=== PATIENT | male | born 1935 | race Caucasian/White ===

== ENCOUNTER → 2017-05-01 | Outpatient (CLI) | payer MEDICARE, OTHER ==
[~2017-05-01] MED LIST: ALLO300 PO; ASPI81CH; CYCL10 PO; Flonase 0.05% N16 GM; HYDACE10B PO; LISHYD2025 PO; Pataday2.5 ML; TAMS.4ER PO; UNK BP MED
== END | disposition home or self-care (01) ==
LOC: LAB SHORT 13:28 → PLD 13:28
DX: D04.62 Carcinoma in situ of skin of left upper limb, including shoulder (principal)
CPT/HCPCS: 88305

== ENCOUNTER → 2018-11-07 | Outpatient (CLI) | payer MEDICARE, OTHER | END | disposition home or self-care (01) | LOC: LAB SHORT 14:09 → PLD 14:09 | DX: D48.5 Neoplasm of uncertain behavior of skin (principal) | CPT/HCPCS: 88305 ==

== ENCOUNTER → 2018-12-04 | Outpatient (CLI) | payer MEDICARE, OTHER | END | disposition home or self-care (01) | LOC: PLD 14:27 → LAB SHORT 14:27 | DX: C44.310 Basal cell carcinoma of skin of unspecified parts of face (principal) | CPT/HCPCS: 88305 ==

== ENCOUNTER → 2019-02-26 | Outpatient (CLI) | payer MEDICARE, OTHER | END | disposition home or self-care (01) | LOC: PLD 07:41 → LAB SHORT 07:41 | DX: C44.319 Basal cell carcinoma of skin of other parts of face (principal); L57.0 Actinic keratosis | CPT/HCPCS: 88305 ==

== ENCOUNTER → 2019-03-11 | Outpatient (CLI) | payer MEDICARE, OTHER | END | disposition home or self-care (01) | LOC: LAB SHORT 07:35 → PLD 07:35 | DX: C44.310 Basal cell carcinoma of skin of unspecified parts of face (principal) | CPT/HCPCS: 88305 ==

== ENCOUNTER → 2019-05-22 | Outpatient (CLI) | payer MEDICARE, OTHER | END | disposition home or self-care (01) | LOC: LAB SHORT 11:27 → PLD 11:27 | DX: D48.5 Neoplasm of uncertain behavior of skin (principal) | CPT/HCPCS: 88305 ==

== ENCOUNTER → 2019-06-06 | Outpatient (CLI) | payer MEDICARE, OTHER | END | disposition home or self-care (01) | LOC: LAB SHORT 15:12 → PLD 15:12 | DX: C44.319 Basal cell carcinoma of skin of other parts of face (principal) | CPT/HCPCS: 88305 ==

== ENCOUNTER → 2021-06-09 | Outpatient (CLI) | payer MEDICARE, OTHER | END | disposition home or self-care (01) | LOC: LAB SHORT 14:58 | DX: L82.1 Other seborrheic keratosis (principal) | CPT/HCPCS: 88305 ==

== ENCOUNTER → 2021-12-08 | Outpatient (CLI) | payer MEDICARE, OTHER | END | disposition home or self-care (01) | LOC: PLD 11:46 → LAB SHORT 11:46 | DX: C44.311 Basal cell carcinoma of skin of nose (principal) | CPT/HCPCS: 88305 ==

== ENCOUNTER → 2022-08-03 | Outpatient (CLI) | payer MEDICARE, OTHER | END | disposition home or self-care (01) | LOC: LAB SHORT 11:36 → LAB 11:36 | DX: C44.311 Basal cell carcinoma of skin of nose (principal); D04.61 Carcinoma in situ of skin of right upper limb, including shoulder | CPT/HCPCS: 88305 ==

== ENCOUNTER → 2023-02-02 | Outpatient (CLI) | payer MEDICARE, OTHER | END | disposition home or self-care (01) | LOC: LAB SHORT 12:16 → PLD 12:16 | DX: C44.629 Squamous cell carcinoma of skin of left upper limb, including shoulder (principal); L82.1 Other seborrheic keratosis | CPT/HCPCS: 88305 ==

== ENCOUNTER 2024-04-24 08:19 | Day surgery (SDC) | payer MEDICARE ==
[~2024-04-24] VITALS: Ht 185.4 cm; Wt 96.8 kg
[2024-04-24] VITALS (18 sets, daily range): BP systolic 98–180; BP diastolic 59–87
[~2024-04-24 08:19] MED LIST changes: +CLOP75 PO; +FINA5 PO; +LISI20 PO
[2024-04-24] MEDS ORDERED: Tranexamic Acid 1,000 MG in NS 100 ML IV SCH (08:30)
[2024-04-24] MEDS ORDERED: Ropivacaine 0.5% HCl/Pf 123.125 MG,EPINEPHrine HCL 0.25 MG,Ketorolac Tromethamine 15 MG... INFIL SCH (08:30)
[2024-04-24] MEDS ORDERED: CeFAZolin Sodium 2,000 MG in NS 100 ML IV SCH ×2 (08:30→19:30)
[2024-04-24] MEDS ORDERED: Lactated Ringer's 1,000 ML IV SCH ×2 (08:30→10:30)
[2024-04-24] MEDS ORDERED: OxyCODONE HCL 10 MG TABCR PO SCH (08:30)
[2024-04-24] MEDS ORDERED: Chlorhexidine Mouth Care 15 ML UDC MT SCH (08:30)
[2024-04-24] MEDS ORDERED: Acetaminophen 500 MG Tab PO SCH ×2 (08:35→16:00)
[2024-04-24] MEDS ORDERED: Ondansetron HCl 2 MG / ML 2ML Vial IV PRN ×2 (08:40→10:25)
[2024-04-24] MEDS ORDERED: FentaNYL Citrate 50 MCG/ML 2 ML Injection IV PRN ×3 (08:40)
--- NOTE | 2024-04-24 08:47 | NUR ---
Ambulatory in Day Surgery W/WALKER. H/O FREQUENT FALLS RECENTLY Pre-Op teaching done. Pt verbalizes understanding. History, Chart, Medications and Allergies reviewed before start of procedure.Patient confirms NPO status and agrees with scheduled surgery.
[2024-04-24] MEDS ORDERED: DIPH50 PO (09:12)
[2024-04-24] MEDS ORDERED: CeFAZolin Sodium 2,000 MG VIAL ONE (09:36)
[2024-04-24] MEDS ORDERED: OxyCODONE HCL 5 MG TAB PO PRN ×2 (10:25)
[2024-04-24] MEDS ORDERED: Metoclopramide HCl 5MG / ML 2ML Vial IV PRN (10:30)
[2024-04-24] MEDS ORDERED: DiphenhydrAMINE HCL 25 MG Cap PO PRN (10:30)
[2024-04-24] MEDS ORDERED: FLU VACC TS2024-25(6MOS UP)/PF 45 MCG/0.5 ML SYRINGE IM SCH (10:30)
[2024-04-24] MEDS ORDERED: HYDROmorphone HCl/Pf 1MG SYR IV PRN (10:30)
[2024-04-24] MEDS ORDERED: Magnesium Hydroxide Conc 10 ML UDC PO PRN (10:30)
[2024-04-24] MEDS ORDERED: Bisacodyl 10 MG Supp PR PRN (10:35)
[2024-04-24] MEDS ORDERED: Promethazine HCl 25 MG Tab PO PRN (10:35)
[2024-04-24] MEDS ORDERED: propofoL 100 ML IV ONE (10:39)
[2024-04-24] MEDS ORDERED: Vancomycin HCL 1,000 MG in NS 110 ML IV ONE (11:15)
[2024-04-24] MEDS ORDERED: FentaNYL Citrate 50 MCG/ML 2 ML Injection ONE ×4 (11:15→14:41)
[2024-04-24] MEDS ORDERED: propofoL 20 ML IV ONE (11:17)
[2024-04-24] MEDS ORDERED: Ketamine HCl 100 MG / ML 5ML Vial ONE (11:26)
--- NOTE | 2024-04-24 11:44 | NUR ---
04/24/24 1144 Jacob,Evi SPINAL BLOCK COMPLETED BY UPON ENTRY TO OR.
[2024-04-24] MEDS ORDERED: Vancomycin HCl 1000 MG ADDvantage ONE (13:00)
[2024-04-24] MEDS ORDERED: HYDROmorphone HCl/Pf 1MG SYR ONE ×2 (13:33→13:56)
[2024-04-24] MEDS ORDERED: Ondansetron HCl 2 MG / ML 2ML Vial ONE (14:18)
[2024-04-24] MEDS ORDERED: Ketorolac Tromethamine 30mg Vial ONE (14:41)
[2024-04-24] MEDS ORDERED: Ketorolac Tromethamine 15mg Vial IV SCH (18:00)
--- NOTE | 2024-04-24 19:12 | NUR ---
POST OP: REPORT RECEIVED AND PT TO UNIT AT ABOUT 1520. VSS, A/O. PT REPORTS FULL SENSATION, PAIN 10/24. MEDICATED PER EMAR. SURGICAL SITE WNL, ICE PACK IN PLACE. PT ORIENTED TO ROOM AND CALL LIGHT. INSTRUCTED TO CALL STAFF FOR ANY HELP OOB. CALL LIGHT IN REACH.
--- NOTE | 2024-04-24 19:16 | NUR ---
SUMMARY: NO ACUTE CHANGE SINCE POST OP. VSS, PT ABLE TO AMBULATE TO CHAIR WITH FWW, STILL AWAITING POST OP VOID. PAIN APPERS MANAGED WITH 10MG OXY AND TORADOL. NO SAFETY CONCERNS, REPORT PASSED TP ROSA NARVAEZ
[2024-04-24] MEDS ORDERED: Docusate Sodium 100 MG Cap PO SCH (21:00)
[2024-04-25 01:23] VITALS: BP 103/63
[2024-04-25 04:29] VITALS: BP 140/76
[2024-04-25 05:09] LABS: BASOPHILS ABSOLUTE AUTO 0.04 K/mm3 (0.00-0.23); BASOPHILS PERCENT AUTO 0 % (0-2); EOSINOPHILS ABSOLUTE AUTO 0.21 K/mm3 (0.00-0.68); EOSINOPHILS PERCENT AUTO 2 % (0-6); Hematocrit 33.8 % (37.0-53.0); Hemoglobin 11.3 g/dL (13.5-17.5); IMMATURE GRAN ABSOLUTE AUTO 0.03 K/mm3 (0.00-0.10); IMMATURE GRAN PERCENT AUTO 0 % (0-1); LYMPHOCYTES PERCENT AUTO 13 % (21-46); MONOCYTES ABSOLUTE AUTO 0.92 K/mm3 (0.16-1.47); MONOCYTES PERCENT AUTO 8 % (4-13); Mean Corpuscular HGB 32.4 pg (26.0-34.0); Mean Corpuscular HGB Conc 33.4 g/dL (31.5-36.5); Mean Corpuscular Volume 97 fL (80-100); Mean Platelet Volume 10.5 fL (9.1-12.4); NEUTROPHILS ABSOLUTE AUTO 8.83 K/mm3 (1.96-9.15); NEUTROPHILS PERCENT AUTO 77 % (41-73); Platelet Count 178 K/mm3 (150-400); RDW Coefficient Variation 13.6 % (11.7-14.2); RDW Standard Deviation 48.2 fL (35.1-46.3); Red Blood Cell Count 3.49 M/mm3 (4.30-5.90); White Blood Cell Count 11.53 K/mm3 (4.00-11.30)
--- NOTE | 2024-04-25 05:20 | NUR ---
SHIFT SUMMARY PT S/P RIGHT TKA POD 0. PT HAS RESTED T/O THE NIGHT. PT IS VOIDING, AND TOLERATING PO INTAKE. VITALS ARE STABLE, SURGICAL SITE WNL. PT DID NOT AMBULATE THIS SHIFT. A FEW ATTEMPTS WERE MADE, PT WAS MOTIVATED TO AMBULATE, HOWEVER PT VERY WEAK AND UNSTEADY ON FEET. WOOBLES AND DOES NOT STAND UP STRAIGHT. PT ALSO REPORTED DIZZINESS. MINIMAL PAIN, MANAGED PER EMAR. IV ANTIBIOTICS INFUSED. PLAN OF CARE REMAINS UNCHANGED. BED IN LOWEST POSITION, CALL LIGHT WITHIN REACH.
[2024-04-25 06:57] LABS: Bun/Creatinine Ratio 14.9 (12.0-20.0); Calcium, Blood 8.2 mg/dL (8.5-10.1); Creatinine, Blood 1.41 mg/dL (0.60-1.20); Magnesium, Blood 1.9 mg/dL (1.6-2.4); Potassium, Blood 4.1 mmol/L (3.5-5.5)
[2024-04-25 07:37] VITALS: BP 140/68
[2024-04-25] MEDS ORDERED: ONDA4ODT PO (07:42)
[2024-04-25] MEDS ORDERED: OXYC5 PO (07:42)
[2024-04-25] MEDS ORDERED: Lisinopril 20 MG Tab PO SCH (09:00)
[2024-04-25] MEDS ORDERED: Finasteride 5 MG Tab PO SCH (09:00)
[2024-04-25] MEDS ORDERED: Tamsulosin HCl 0.4 MG Cap PO SCH (09:00)
[2024-04-25] MEDS ORDERED: Allopurinol 300 MG Tab PO SCH (09:00)
[2024-04-25 11:39] VITALS: BP 127/63
--- NOTE | 2024-04-25 13:55 | NUR ---
DISCHARGE PT AND HIS DAUGHTER WERE PROVIDED WITH WRITTEN AND VERBAL DISCHARGE INSTRUCTIONS, THEY REPORTED UNDERSTANDING INSTRUCTIONS. PT CLEARED THERAPY, PAIN MANAGED, TOLERATING PO AND VSS WITHIN 1 HOUR OF DISCHARGE. PT ASSISTED OUT IN W/C AT APPROXIMATELY 1236.
[2024-04-25] MEDS ORDERED: Clopidogrel Bisulfate 75 MG Tab PO SCH (17:00)
== END 2024-04-25 12:36 | disposition home or self-care (01) ==
LOC: ORSCMMR 08:19 → ORD 10:45 → ORSCMMR 11:00 → ORD 12:00 → SURS 15:15 → ORSCMMR 04-25 12:36
PROVIDERS: Orthopaedic Surgery
PROC: 0SRC0J9 Replacement of Right Knee Joint with Synthetic Substitute, Cemented, Open Approach (ICD-10-PCS; principal; 2024-04-24 11:00)
DX: M17.11 Unilateral primary osteoarthritis, right knee (principal); I10 Essential (primary) hypertension; E78.5 Hyperlipidemia, unspecified; G62.9 Polyneuropathy, unspecified; Z79.02 Long term (current) use of antithrombotics/antiplatelets; Z79.899 Other long term (current) drug therapy
CPT/HCPCS: 36415; 73560-RT; 80048; 83735; 85025; 97110; 97116; 97162; A9270; C1713; C1776; J0171; J0690; J0735; J1171; J1885; J2405; J2704; J2795; J3010; J3370; J7120